=== PATIENT | male | born 1955 | race Caucasian/White ===

== ENCOUNTER 2021-01-13 06:12 | Inpatient (IN) | payer MEDICARE ==
[2021-01-13] VITALS (37 sets, daily range): BP systolic 128–214; BP diastolic 60–104
[~2021-01-13] VITALS: Ht 193 cm; Wt 137.2 kg
[2021-01-13] MEDS ORDERED: ZESTRIL10 M1 PO (06:30)
[2021-01-13] MEDS ORDERED: HALOPERIDOL2 MG PO (06:31)
[2021-01-13] MEDS ORDERED: KLONOPIN2 MG PO (06:32)
[2021-01-13] MEDS ORDERED: ZOCOR20 M1 PO (06:32)
[2021-01-13 08:18] LABS: HEMATOCRIT 37.9 % (39.0-50.0); HEMOGLOBIN 13.9 g/dl (14.0-18.0); IMMATURE GRANULOCYTES 0.7 % (0.0-5.0); MEAN CORPUSCULAR HGB 28.6 pG CALC (26.0-32.0); MEAN CORPUSCULAR HGB CONC 36.7 g/dL CAL (32.0-36.0); NEUT# 7.16 thou/uL (1.82-7.42); RED BLOOD COUNT 4.86 mill/uL (4.70-6.10)
[2021-01-13 08:39] LABS: D-DIMER 0.62 mg/L (0.19-0.60)
[2021-01-13 08:40] LABS: ALBUMIN 3.8 g/dL (3.2-5.0); ALKALINE PHOSPHATASE 81 u/l (38-126); BILIRUBIN, TOTAL 1.5 mg/dL (0.0-1.4); BUN 11 mg/dL (8-23); BUN/CREATININE RATIO 11 (12-20 (CALC)); CARBON DIOXIDE 21 mmol/l (22-30); CHLORIDE 71 mmol/l (95-108); CREATININE 0.9 mg/dL (0.7-1.3); GFR > 60 ML/MIN (>=60 (CALC)); GFR FOR AFR.AMER. > 60 ML/MIN (>=60 (CALC)); LIPASE 184 u/l (23-300); POTASSIUM 3.9 mmol/l (3.5-5.1); SGOT/AST 134 u/l (19-48); TOTAL PROTEIN 6.7 g/dL (6.3-8.2)
[2021-01-13 08:43] LABS: ACT PARTIAL THROMBO TIME 31.8 SECONDS (20.0-32.5); INTERNATIONAL NORMALIZED RATIO 1.1 RATIO (0.7-1.3); PROTHROMBIN TIME 11.3 SECONDS (9.0-12.5)
[2021-01-13 08:44] LABS: ANION GAP 16 (6-22 (CALC)); SODIUM 104 mmol/l (137-146)
[2021-01-13 12:57] LABS: ANION GAP 15 (6-22 (CALC)); BUN 11 mg/dL (8-23); BUN/CREATININE RATIO 13 (12-20 (CALC)); CARBON DIOXIDE 19 mmol/l (22-30); CHLORIDE 72 mmol/l (95-108); CREATININE 0.8 mg/dL (0.7-1.3); GFR > 60 ML/MIN (>=60 (CALC)); GFR FOR AFR.AMER. > 60 ML/MIN (>=60 (CALC))
[2021-01-13 13:00] LABS: SODIUM 102 mmol/l (137-146)
[2021-01-13 16:35] LABS: POTASSIUM 3.9 mmol/l (3.5-5.1)
[2021-01-13 18:13] LABS: BUN 11 mg/dL (8-23); BUN/CREATININE RATIO 13 (12-20 (CALC)); CARBON DIOXIDE 21 mmol/l (22-30); CHLORIDE 75 mmol/l (95-108); CREATININE 0.9 mg/dL (0.7-1.3); GFR > 60 ML/MIN (>=60 (CALC)); GFR FOR AFR.AMER. > 60 ML/MIN (>=60 (CALC)); POTASSIUM 3.8 mmol/l (3.5-5.1)
[2021-01-13 18:15] LABS: TSH, 3RD GENERATION 0.6 uIU/mL (0.47 - 4.68)
[2021-01-13 18:19] LABS: ANION GAP 13 (6-22 (CALC))
[2021-01-13 18:20] LABS: SODIUM 105 mmol/l (137-146)
[2021-01-13 21:00] LABS: ANION GAP 12 (6-22 (CALC)); BUN 11 mg/dL (8-23); BUN/CREATININE RATIO 11 (12-20 (CALC)); CARBON DIOXIDE 22 mmol/l (22-30); CHLORIDE 76 mmol/l (95-108); GFR > 60 ML/MIN (>=60 (CALC)); GFR FOR AFR.AMER. > 60 ML/MIN (>=60 (CALC)); POTASSIUM 3.7 mmol/l (3.5-5.1)
[2021-01-13 21:04] LABS: SODIUM 106 mmol/l (137-146)
[2021-01-13 22:40] LABS: POTASSIUM 3.8 mmol/l (3.5-5.1)
[2021-01-14] VITALS (21 sets, daily range): BP systolic 117–131; BP diastolic 56–66
[2021-01-14 05:29] LABS: POTASSIUM 3.9 mmol/l (3.5-5.1)
[2021-01-14 06:24] LABS: HEMATOCRIT 34.8 % (39.0-50.0); HEMOGLOBIN 12.4 g/dl (14.0-18.0); IMMATURE GRANULOCYTES 0.6 % (0.0-5.0); MEAN CELL VOLUME 80.2 fL CALC (80.0-100.0); MEAN CORPUSCULAR HGB 28.6 pG CALC (26.0-32.0); MEAN CORPUSCULAR HGB CONC 35.6 g/dL CAL (32.0-36.0); NEUT# 8.95 thou/uL (1.82-7.42); RED BLOOD COUNT 4.34 mill/uL (4.70-6.10); RED CELL DISTRI WIDTH 14.4 % (11.5-15.5)
[2021-01-14 06:38] LABS: BUN 11 mg/dL (8-23); BUN/CREATININE RATIO 10 (12-20 (CALC)); CARBON DIOXIDE 24 mmol/l (22-30); CHLORIDE 81 mmol/l (95-108); CREATININE 1.1 mg/dL (0.7-1.3); GFR > 60 ML/MIN (>=60 (CALC)); GFR FOR AFR.AMER. > 60 ML/MIN (>=60 (CALC))
[2021-01-14 06:56] LABS: ANION GAP 10 (6-22 (CALC)); C-REACTIVE PROTEIN 17.5 mg/dL (0-0.9); MAGNESIUM 2.7 mg/dL (1.6-2.3); SODIUM 111 mmol/l (137-146)
[2021-01-14] MEDS ORDERED: KLONOPIN1 MG PO (09:45)
[2021-01-14] MEDS ORDERED: CLONAZEPAM0.5 M1 PO (09:51)
[2021-01-14 10:38] LABS: BUN 12 mg/dL (8-23); BUN/CREATININE RATIO 10 (12-20 (CALC)); CARBON DIOXIDE 24 mmol/l (22-30); CHLORIDE 83 mmol/l (95-108); CREATININE 1.1 mg/dL (0.7-1.3); GFR > 60 ML/MIN (>=60 (CALC)); GFR FOR AFR.AMER. > 60 ML/MIN (>=60 (CALC))
[2021-01-14 10:41] LABS: ANION GAP 8 (6-22 (CALC))
[2021-01-14 10:42] LABS: SODIUM 111 mmol/l (137-146)
[2021-01-14 15:10] LABS: BUN 12 mg/dL (8-23); BUN/CREATININE RATIO 11 (12-20 (CALC)); CARBON DIOXIDE 25 mmol/l (22-30); CHLORIDE 87 mmol/l (95-108); CREATININE 1.1 mg/dL (0.7-1.3); GFR > 60 ML/MIN (>=60 (CALC)); GFR FOR AFR.AMER. > 60 ML/MIN (>=60 (CALC)); POTASSIUM 4.4 mmol/l (3.5-5.1)
[2021-01-14 15:14] LABS: ANION GAP 9 (6-22 (CALC)); SODIUM 117 mmol/l (137-146)
[2021-01-15] VITALS (23 sets, daily range): BP systolic 97–147; BP diastolic 54–89
[2021-01-15 06:35] LABS: HEMATOCRIT 38.4 % (39.0-50.0); HEMOGLOBIN 13.1 g/dl (14.0-18.0); IMMATURE GRANULOCYTES 0.4 % (0.0-5.0); MEAN CELL VOLUME 84.2 fL CALC (80.0-100.0); MEAN CORPUSCULAR HGB 28.7 pG CALC (26.0-32.0); MEAN CORPUSCULAR HGB CONC 34.1 g/dL CAL (32.0-36.0); NEUT# 8.51 thou/uL (1.82-7.42); RED BLOOD COUNT 4.56 mill/uL (4.70-6.10)
[2021-01-15 06:42] LABS: BUN 14 mg/dL (8-23); CARBON DIOXIDE 26 mmol/l (22-30); CHLORIDE 88 mmol/l (95-108); GFR > 60 ML/MIN (>=60 (CALC)); GFR FOR AFR.AMER. > 60 ML/MIN (>=60 (CALC)); POTASSIUM 4.7 mmol/l (3.5-5.1); SODIUM 120 mmol/l (137-146)
[2021-01-15 06:54] LABS: ALBUMIN 2.7 g/dL (3.2-5.0); C-REACTIVE PROTEIN > 9.0 mg/dL (0-0.9)
[2021-01-15 07:50] LABS: URINE BILIRUBIN - DIPSTICK NEGATIVE (NEGATIVE); URINE BLOOD DIPSTICK LARGE (NEGATIVE); URINE COLOR YELLOW; URINE GLUCOSE - DIPSTICK NEGATIVE (NEGATIVE); URINE KETONE NEGATIVE (NEGATIVE); URINE LEUK ESTERASE NEGATIVE (NEGATIVE); URINE NITRITE - DIPSTICK NEGATIVE (Negative); URINE PH 6.5 (4.5-8.0); URINE PROTEIN - DIPSTICK 30 mg/dL (NEG-TRACE); URINE UROBILINOGEN - DIPSTICK 0.2 E.U./dL (0.2)
[2021-01-15 07:52] LABS: URINE AMORPH SEDIMENT MANY hpf (NONE-FER)
[2021-01-15 07:53] LABS: URINE WBC 0-2 WBC/hpf (0-5)
[2021-01-15 07:54] LABS: URINE COARSE GRANULAR CAST FEW lpf
[2021-01-16] VITALS (22 sets, daily range): BP systolic 107–135; BP diastolic 56–73
[2021-01-16 04:51] LABS: HEMATOCRIT 33.8 % (39.0-50.0); HEMOGLOBIN 11.2 g/dl (14.0-18.0); MEAN CORPUSCULAR HGB 28.5 pG CALC (26.0-32.0); MEAN CORPUSCULAR HGB CONC 33.1 g/dL CAL (32.0-36.0); NEUT# 7.63 thou/uL (1.82-7.42); RED BLOOD COUNT 3.93 mill/uL (4.70-6.10); RED CELL DISTRI WIDTH 15.3 % (11.5-15.5)
[2021-01-16 05:06] LABS: ALBUMIN 2.5 g/dL (3.2-5.0); BUN 15 mg/dL (8-23); C-REACTIVE PROTEIN 8.9 mg/dL (0-0.9); CARBON DIOXIDE 29 mmol/l (22-30); CHLORIDE 92 mmol/l (95-108); GFR > 60 ML/MIN (>=60 (CALC)); GFR FOR AFR.AMER. > 60 ML/MIN (>=60 (CALC)); POTASSIUM 4.6 mmol/l (3.5-5.1); SGOT/AST 58 u/l (19-48); SODIUM 124 mmol/l (137-146)
[2021-01-16 12:40] LABS: ANION GAP 9 (6-22 (CALC)); BUN 17 mg/dL (8-23); BUN/CREATININE RATIO 17 (12-20 (CALC)); CARBON DIOXIDE 29 mmol/l (22-30); CHLORIDE 92 mmol/l (95-108); GFR > 60 ML/MIN (>=60 (CALC)); GFR FOR AFR.AMER. > 60 ML/MIN (>=60 (CALC)); POTASSIUM 3.9 mmol/l (3.5-5.1); SODIUM 126 mmol/l (137-146)
[2021-01-16 18:50] LABS: ANION GAP 7 (6-22 (CALC)); BUN 18 mg/dL (8-23); BUN/CREATININE RATIO 20 (12-20 (CALC)); CARBON DIOXIDE 29 mmol/l (22-30); CHLORIDE 93 mmol/l (95-108); CREATININE 0.9 mg/dL (0.7-1.3); GFR > 60 ML/MIN (>=60 (CALC)); GFR FOR AFR.AMER. > 60 ML/MIN (>=60 (CALC)); POTASSIUM 4.3 mmol/l (3.5-5.1); SODIUM 125 mmol/l (137-146)
[2021-01-17] VITALS (39 sets, daily range): BP systolic 116–168; BP diastolic 60–104
[2021-01-17 00:50] LABS: ANION GAP 8 (6-22 (CALC)); BUN 19 mg/dL (8-23); BUN/CREATININE RATIO 21 (12-20 (CALC)); CARBON DIOXIDE 28 mmol/l (22-30); CHLORIDE 95 mmol/l (95-108); CREATININE 0.9 mg/dL (0.7-1.3); GFR > 60 ML/MIN (>=60 (CALC)); GFR FOR AFR.AMER. > 60 ML/MIN (>=60 (CALC)); SODIUM 128 mmol/l (137-146)
[2021-01-17 06:22] LABS: HEMOGLOBIN 10.7 g/dl (14.0-18.0); MEAN CELL VOLUME 87.5 fL CALC (80.0-100.0); MEAN CORPUSCULAR HGB 28.4 pG CALC (26.0-32.0); MEAN CORPUSCULAR HGB CONC 32.4 g/dL CAL (32.0-36.0); NEUT# 8.1 thou/uL (1.82-7.42); RED BLOOD COUNT 3.77 mill/uL (4.70-6.10); RED CELL DISTRI WIDTH 15.2 % (11.5-15.5)
[2021-01-17 06:31] LABS: ALBUMIN 2.4 g/dL (3.2-5.0); BUN 19 mg/dL (8-23); CARBON DIOXIDE 29 mmol/l (22-30); CHLORIDE 96 mmol/l (95-108); CREATININE 0.9 mg/dL (0.7-1.3); GFR > 60 ML/MIN (>=60 (CALC)); GFR FOR AFR.AMER. > 60 ML/MIN (>=60 (CALC)); POTASSIUM 3.8 mmol/l (3.5-5.1); SODIUM 129 mmol/l (137-146)
[2021-01-17 06:42] LABS: C-REACTIVE PROTEIN 22.8 mg/dL (0-0.9)
[2021-01-18] VITALS (44 sets, daily range): BP systolic 105–154; BP diastolic 53–85
[2021-01-18 05:57] LABS: HEMOGLOBIN 10.9 g/dl (14.0-18.0); IMMATURE GRANULOCYTES 4.6 % (0.0-5.0); MEAN CELL VOLUME 88.8 fL CALC (80.0-100.0); MEAN CORPUSCULAR HGB 28.5 pG CALC (26.0-32.0); MEAN CORPUSCULAR HGB CONC 32.1 g/dL CAL (32.0-36.0); NEUT# 7.73 thou/uL (1.82-7.42); RED BLOOD COUNT 3.83 mill/uL (4.70-6.10); RED CELL DISTRI WIDTH 15.2 % (11.5-15.5)
[2021-01-18 06:56] LABS: ANION GAP 10 (6-22 (CALC)); BUN 21 mg/dL (8-23); BUN/CREATININE RATIO 20 (12-20 (CALC)); CARBON DIOXIDE 30 mmol/l (22-30); CHLORIDE 97 mmol/l (95-108); GFR > 60 ML/MIN (>=60 (CALC)); GFR FOR AFR.AMER. > 60 ML/MIN (>=60 (CALC)); POTASSIUM 3.8 mmol/l (3.5-5.1); SODIUM 133 mmol/l (137-146)
[2021-01-18 07:10] LABS: ALBUMIN 2.4 g/dL (3.2-5.0); BUN 21 mg/dL (8-23); CARBON DIOXIDE 30 mmol/l (22-30); CHLORIDE 97 mmol/l (95-108); GFR > 60 ML/MIN (>=60 (CALC)); GFR FOR AFR.AMER. > 60 ML/MIN (>=60 (CALC)); POTASSIUM 3.8 mmol/l (3.5-5.1); SODIUM 133 mmol/l (137-146)
[2021-01-18 07:14] LABS: C-REACTIVE PROTEIN > 27.0 mg/dL (0-0.9)
[2021-01-19] VITALS (22 sets, daily range): BP systolic 114–153; BP diastolic 55–80
[2021-01-19 09:17] LABS: ANION GAP 10 (6-22 (CALC)); BUN 29 mg/dL (8-23); BUN/CREATININE RATIO 27 (12-20 (CALC)); CARBON DIOXIDE 31 mmol/l (22-30); CHLORIDE 102 mmol/l (95-108); CREATININE 1.1 mg/dL (0.7-1.3); GFR > 60 ML/MIN (>=60 (CALC)); GFR FOR AFR.AMER. > 60 ML/MIN (>=60 (CALC)); POTASSIUM 4.3 mmol/l (3.5-5.1); SODIUM 138 mmol/l (137-146)
[2021-01-20] VITALS (24 sets, daily range): BP systolic 129–177; BP diastolic 61–97
[2021-01-20 05:41] LABS: HEMATOCRIT 37.4 % (39.0-50.0); HEMOGLOBIN 11.2 g/dl (14.0-18.0); MEAN CORPUSCULAR HGB 28.4 pG CALC (26.0-32.0); MEAN CORPUSCULAR HGB CONC 29.9 g/dL CAL (32.0-36.0); NEUT# 6.84 thou/uL (1.82-7.42); RED BLOOD COUNT 3.95 mill/uL (4.70-6.10); RED CELL DISTRI WIDTH 15.5 % (11.5-15.5)
[2021-01-20 05:49] LABS: IMMATURE GRANULOCYTES 6.9 % (0.0-5.0); MEAN CELL VOLUME 94.7 fL CALC (80.0-100.0)
[2021-01-20 05:57] LABS: ALBUMIN 2.4 g/dL (3.2-5.0); BUN 32 mg/dL (8-23); CARBON DIOXIDE 35 mmol/l (22-30); CHLORIDE 105 mmol/l (95-108); CREATININE 1.2 mg/dL (0.7-1.3); GFR > 60 ML/MIN (>=60 (CALC)); GFR FOR AFR.AMER. > 60 ML/MIN (>=60 (CALC)); POTASSIUM 4.4 mmol/l (3.5-5.1); SGOT/AST 40 u/l (19-48); SODIUM 144 mmol/l (137-146)
[2021-01-20 06:21] LABS: C-REACTIVE PROTEIN > 27.0 mg/dL (0-0.9)
[2021-01-21] VITALS (18 sets, daily range): BP systolic 119–167; BP diastolic 63–83
[2021-01-21 05:28] LABS: BASO% 0 % (0-3); EOS% 0 % (0-8); HEMATOCRIT 37.2 % (39.0-50.0); HEMOGLOBIN 10.9 g/dl (14.0-18.0); LYMPH% 5 % (15-41); MEAN CELL VOLUME 95.6 fL CALC (80.0-100.0); MEAN CORPUSCULAR HGB CONC 29.3 g/dL CAL (32.0-36.0); MONO% 3 % (2-13); NEUT# 6.49 thou/uL (1.82-7.42); NEUT% 85 % (42-76); PLATELET COUNT 177 thou/uL (130-400); RED BLOOD COUNT 3.89 mill/uL (4.70-6.10); RED CELL DISTRI WIDTH 15.6 % (11.5-15.5)
[2021-01-21 05:34] LABS: IMMATURE GRANULOCYTES 6.2 % (0.0-5.0)
[2021-01-21 05:42] LABS: ALBUMIN 2.4 g/dL (3.2-5.0); ALKALINE PHOSPHATASE 71 u/l (38-126); ANION GAP 8 (6-22 (CALC)); BUN 38 mg/dL (8-23); BUN/CREATININE RATIO 29 (12-20 (CALC)); CARBON DIOXIDE 37 mmol/l (22-30); CHLORIDE 108 mmol/l (95-108); CREATININE 1.3 mg/dL (0.7-1.3); GFR 56 ML/MIN (>=60 (CALC)); GFR FOR AFR.AMER. > 60 ML/MIN (>=60 (CALC)); POTASSIUM 4.2 mmol/l (3.5-5.1); SGOT/AST 52 u/l (19-48); SODIUM 149 mmol/l (137-146); TOTAL PROTEIN 5.4 g/dL (6.3-8.2)
[2021-01-21 05:59] LABS: BILIRUBIN, TOTAL 0.8 mg/dL (0.0-1.4); C-REACTIVE PROTEIN > 27.0 mg/dL (0-0.9)
== END 2021-01-21 19:55 | disposition short-term general hospital (02) | DRG 207 ==
LOC: ED 06:12 → ED-I 08:35 → ED 08:35 → ED-I 09:00 → ED 09:52 → ICU 09:53
PROVIDERS: Hospitalist; Internal Medicine Nephrology; Nurse Practitioner; ADMIT Internal Medicine; ATTEND Internal Medicine
PROC: 0BH17EZ Insertion of Endotracheal Airway into Trachea, Via Natural or Artificial Opening (ICD-10-PCS; principal; 2021-01-13)
PROC: 5A1945Z Respiratory Ventilation, 24-96 Consecutive Hours (ICD-10-PCS; 2021-01-13)
PROC: XW033E5 Introduction of Remdesivir Anti-infective into Peripheral Vein, Percutaneous Approach, New Technology Group 5 (ICD-10-PCS; 2021-01-13)
PROC: 02HV33Z Insertion of Infusion Device into Superior Vena Cava, Percutaneous Approach (ICD-10-PCS; 2021-01-13)
PROC: 02HV33Z Insertion of Infusion Device into Superior Vena Cava, Percutaneous Approach (ICD-10-PCS; 2021-01-13)
PROC: B518ZZA Fluoroscopy of Superior Vena Cava, Guidance (ICD-10-PCS; 2021-01-13)
PROC: 5A1955Z Respiratory Ventilation, Greater than 96 Consecutive Hours (ICD-10-PCS; 2021-01-15)
PROC: 0BH17EZ Insertion of Endotracheal Airway into Trachea, Via Natural or Artificial Opening (ICD-10-PCS; 2021-01-15)
PROC: XW043H5 Introduction of Tocilizumab into Central Vein, Percutaneous Approach, New Technology Group 5 (ICD-10-PCS; 2021-01-20)
DX: U07.1 COVID-19 (principal); J12.82 Pneumonia due to coronavirus disease 2019; J96.01 Acute respiratory failure with hypoxia; G93.41 Metabolic encephalopathy; G40.89 Other seizures; E22.2 Syndrome of inappropriate secretion of antidiuretic hormone; N17.9 Acute kidney failure, unspecified; D64.9 Anemia, unspecified; E83.42 Hypomagnesemia; I10 Essential (primary) hypertension; E78.5 Hyperlipidemia, unspecified; F95.2 Tourette's disorder; M19.90 Unspecified osteoarthritis, unspecified site
CPT/HCPCS: J1650; J2060; J3262; J3370; J3475; Q9967; S0164

== ENCOUNTER 2022-02-05 09:53 | Inpatient (IN) | payer MEDICARE ==
[~2022-02-05] VITALS: Ht 193 cm; Wt 110.2 kg
[~2022-02-05 09:53] MED LIST: CLONAZEPAM0.5 M1 PO; CYMBALTA30 MG PO; GABAPENTIN600 MG PO; HALOPERIDOL2 MG PO; KLONOPIN1 MG PO; KLONOPIN2 MG PO; SIMVASTATIN20 M1 PO; TRAMADOL HCL50 MG PO; ZESTRIL10 M1 PO; ZOCOR20 M1 PO
[2022-02-05 15:43] VITALS: BP 124/58
[2022-02-05 18:39] VITALS: BP 114/65
[2022-02-06 04:47] VITALS: BP 114/63
[2022-02-06 05:00] LABS: HEMATOCRIT 32.1 % (39.0-50.0); HEMOGLOBIN 10.5 g/dl (14.0-18.0); IMMATURE GRANULOCYTES 0.2 % (0.0-5.0); MEAN CELL VOLUME 95.8 fL CALC (80.0-100.0); MEAN CORPUSCULAR HGB 31.3 pG CALC (26.0-32.0); MEAN CORPUSCULAR HGB CONC 32.7 g/dL CAL (32.0-36.0); NEUT# 3.7 thou/uL (1.82-7.42); RED BLOOD COUNT 3.35 mill/uL (4.70-6.10); RED CELL DISTRI WIDTH 13.5 % (11.5-15.5)
[2022-02-06 05:34] LABS: CREATININE 1.7 mg/dL (0.7-1.3); POTASSIUM 4.3 mmol/l (3.5-5.1)
[2022-02-06 06:24] VITALS: BP 112/64
[2022-02-06 10:49] VITALS: BP 117/65
[2022-02-06 14:45] VITALS: BP 137/69
[2022-02-06 20:46] VITALS: BP 120/80
[2022-02-07 04:30] VITALS: BP 112/74
[2022-02-07 06:22] VITALS: BP 145/80
[2022-02-07] MEDS ORDERED: PERCOCET 5/321 COMBO PO (09:00)
== END 2022-02-07 12:48 | disposition home or self-care (01) | DRG 331 ==
LOC: ORM 09:53 → MS2 14:46
PROVIDERS: ADMIT Surgery; ATTEND Surgery
PROC: 0DQN0ZZ Repair Sigmoid Colon, Open Approach (ICD-10-PCS; principal; 2022-02-05)
PROC: 0DBL8ZX Excision of Transverse Colon, Via Natural or Artificial Opening Endoscopic, Diagnostic (ICD-10-PCS; 2022-02-05)
DX: Z43.3 Encounter for attention to colostomy (principal); Z12.11 Encounter for screening for malignant neoplasm of colon; F41.9 Anxiety disorder, unspecified; Z87.898 Personal history of other specified conditions
CPT/HCPCS: J0131; J1650